=== PATIENT | female | born 1980 | race Caucasian/White ===

== ENCOUNTER → 2016-11-12 | Outpatient (CLI) | payer MEDICAID ==
[2016-11-12 08:55] LABS: ABSOLUTE BASOPHILS # (AUTO) 0.1 10^3/uL (0.0-0.2); ABSOLUTE EOSINOPHILS # (AUTO) 0.2 10^3/uL (0.0-0.6); ABSOLUTE LYMPHOCYTES (AUTO) 1.8 10^3/uL (0.5-4.7); ABSOLUTE MONOCYTES (AUTO) 0.7 10^3/uL (0.1-1.4); ABSOLUTE NEUT (AUTO) 5.8 10^3/uL (1.7-8.2); HEMATOCRIT 39.5 % (36.0-47.0); HEMOGLOBIN 12.6 g/dL (12.0-15.5); HGB HCT DIFFERENCE -1.7; LYMPHOCYTES % (AUTO) 21.1 % (13-45); MEAN CORPUSCULAR HEMOGLOBIN 26.9 pg (27.0-33.4); MEAN CORPUSCULAR HGB CONC 31.9 g/dL (32.0-36.0); MEAN CORPUSCULAR VOLUME 84 fl (80-97); MONOCYTES % (AUTO) 8.4 % (3-13); RED BLOOD COUNT 4.68 10^6/uL (3.72-5.28); RED CELL DISTRIBUTION WIDTH 13.1 % (11.5-14.0); SEGMENTED NEUTROPHILS % (AUTO) 67.5 % (42-78); WHITE BLOOD COUNT 8.5 10^3/uL (4.0-10.5)
[2016-11-12 09:20] LABS: ALANINE AMINOTRANSFERASE 62 U/L (9-52); ALBUMIN 3.8 g/dL (3.5-5.0); ALKALINE PHOSPHATASE 63 U/L (38-126); ANION GAP 9 (5-19); ASPARTATE AMINO TRANSFERASE 29 U/L (14-36); BILIRUBIN,TOTAL 0.6 mg/dL (0.2-1.3); BLOOD UREA NITROGEN 14 mg/dL (7-20); CALCIUM 9.2 mg/dL (8.4-10.2); CARBON DIOXIDE 28 mmol/L (22-30); CHLORIDE 104 mmol/L (98-107); CHOLESTEROL 190.85 mg/dL (0-200); CREATININE RESULT 0.78 mg/dL (0.52-1.25); Direct HDL 48 mg/dL (>40); GLUCOSE 93 mg/dL (75-110); POTASSIUM 4.7 mmol/L (3.6-5.0); TOTAL PROTEIN 6.2 g/dL (6.3-8.2); TRIGLYCERIDES 92 mg/dL (<150)
[2016-11-12 09:31] LABS: DIRECT LDL 129 mg/dL (<100)
[2016-11-13 10:20] LABS: FOLLICLE STIMULATING HORMONE 4.8 mIU/mL (.); LUTEINIZING HORMONE 3.7 mIU/mL (.); VITAMIN D 25-HYDROXY 17.6 ng/mL (30.0-100.0)
== END ==
LOC: LAB 08:36
PROVIDERS: ATTEND Nurse Practitioner Family
DX: D51.0 Vitamin B12 deficiency anemia due to intrinsic factor deficiency (principal); E83.32 Hereditary vitamin D-dependent rickets (type 1) (type 2)
CPT/HCPCS: 36415; 80053; 80061; 82306; 82607; 83001; 83002; 85025

== ENCOUNTER → 2016-11-12 | Outpatient (CLI) | payer MEDICAID ==
--- NOTE | 2016-11-16 07:59 | WOMENS IMAGING REPORT ---
EXAM DESCRIPTION: BILAT SCREENING MAMMO W/CAD COMPLETED DATE/TIME: 11/12/2016 2:03 pm REASON FOR STUDY: Z12.31, ROUTINE SCREENING MAMMO Z12.31 ENCNTR SCREEN MAMMOGRAM FOR MALIGNANT NEOP LASM OF KATHRYN COMPARISON: None. TECHNIQUE: Standard craniocaudal and mediolateral oblique views of each breast recorded using [employer] acquisition. LIMITATIONS: None. FINDINGS: No masses, calcifications or architectural distortion. No areas of suspicion. Read with the assistance of CAD. .[facility] - R2 Cenova Version 1.3 .[facility] Imaging - R2 Cenova Version 1.3 .[facility] - R2 Cenova Version 2.4 .[facility] [place] R2 Cenova Version 2.4 .[facility] - R2 Clean[employer]aser Version 9.2 BREAST DENSITY: d. The breasts are extremely dense, which lowers the sensitivity of mammography. BIRAD: 1 NEGATIVE RECOMMENDATION: ROUTINE SCREENING, unless there is any clinical palpable finding. Then follow-up di agnostic mammograms and ultrasound would be required. Please begin routine screening based on the patient's individual lifetime risk assessment for breast cancer, Deysi model. If the patient is to continue screening, recommend bilateral screening tomosynth esis given extremely dense fibroglandular tissue bilaterally. COMMENT: PATIENT NOTIFIED BY LETTER. The [employer] recommends an annual screening mammogram for women aged 40 years or over. Each patient will receive a reminder prior to the anniversary date of her mammogram. The [employer] (ACR) has developed recommendations for screening MRI of the breast s in certain patient populations, to be used in conjunction with mammography. Breast MRI surveillanc e may be appropriate for women with more than 20% lifetime risk of developing breast cancer as deter mined by genetic testing, significant family history of the disease, or history of mantle radiation f or Hodgkins Disease. ACR Practice Guidelines 2008. TECHNICAL DOCUMENTATION: FINDING NUMBER: (1) ASSESSMENT: (1) JOB ID: [id number] [employer]- All Rights Reserved
== END ==
LOC: WI 10:45
PROVIDERS: ATTEND Nurse Practitioner Family
DX: Z12.31 Encounter for screening mammogram for malignant neoplasm of breast (principal)
CPT/HCPCS: 77067; G0202

== ENCOUNTER 2017-05-10 23:09 | Emergency (ER) | payer MEDICAID ==
--- NOTE | 2017-05-11 01:54 | RADIOLOGY REPORT (SQ) ---
EXAM DESCRIPTION: SHOULDER LEFT 2 OR MORE VIEWS COMPLETED DATE/TIME: 05/11/2017 1:34 am REASON FOR STUDY: pain COMPARISON: None. NUMBER OF VIEWS: Three views. TECHNIQUE: Internal rotation, external rotation, and Y view images acquired of the left shoulder. LIMITATIONS: None. FINDINGS: MINERALIZATION: Normal. BONES: No acute fracture or dislocation. No worrisome bone lesions. JOINTS: No dislocation. VISUALIZED LUNGS AND RIBS: No pneumothorax. No rib fracture. SOFT TISSUES: No radiopaque foreign body. OTHER: No other significant finding. IMPRESSION: NEGATIVE STUDY OF THE LEFT SHOULDER. NO RADIOGRAPHIC EVIDENCE OF ACUTE INJURY. TECHNICAL DOCUMENTATION: JOB ID: [id number] [employer]- All Rights Reserved
[2017-05-11] MEDS ORDERED: HYDROCODONE/ACETAMINOPHEN 5-325 MG 6 TAB/DSPK PO PRN (02:16)
[2017-05-11] MEDS ORDERED: ONDANSETRON ODT 4 MG TAB (6 TAB/DSPK) PO PRN (02:16)
--- NOTE | 2017-05-11 02:18 | ER Document Report ---
ED Extremity Problem, Upper - General Chief Complaint: Shoulder Pain Stated Complaint: LEFT SHOULDER PAIN Time Seen by Provider: 05/11/17 01:54 Mode of Arrival: Ambulatory Information source: Patient TRAVEL OUTSIDE OF THE [place] IN LAST 30 DAYS: No - HPI Patient complains to provider of: Injury, Pain, Left, Shoulder Onset: Other - 2 days Recent injury: Yes Where: Outdoors Quality of pain: Achy Severity of pain: Moderate Context: Fall Associated symptoms: None Exacerbated by: Movement Relieved by: Nothing Similar symptoms previously: No Recently seen / treated by doctor: No Notes: Patient is a 37-year-old female who presents to the emergency room complaining of left shoulder pain 2 days, patient reports that on Tuesday she had a graduation alliance party for her son, they had a blow up water slide, she was playing on the slide, at one point in time her nephew posterior over, causing her feet to fall out from underneath her and landing on her left shoulder, when she woke up Tuesday morning she reported increased pain, since then has had pain with any type of range of motion of the left shoulder, denies any shortness of breath, no history of similar symptoms previously to the shoulder, she took Flexeril and Tylenol at home with minimal relief of symptoms - Related Data Allergies/Adverse Reactions: cefaclor [From Ceclor] Allergy (Unknown, Verified 07/11/16 15:13) latex [Latex] Allergy (Unknown, Verified 07/11/16 15:13) naproxen [Naproxen] Allergy (Unknown, Verified 07/11/16 15:13) bees Allergy (Unknown, Uncoded 07/11/16 15:13) Past Medical History - General Information source: Patient - Social History Smoking Status: Former Smoker Family History: Reviewed & Not Pertinent Renal/ Medical History: Denies: Hx Peritoneal Dialysis Past Surgical History: Reports: Hx Oral Surgery - Immunizations Hx Diphtheria, Pertussis, Tetanus Vaccination: Yes Review of Systems - Review of Systems Constitutional: No symptoms reported EENT: No symptoms reported Cardiovascular: No symptoms reported Respiratory: No symptoms reported Gastrointestinal: No symptoms reported Genitourinary: No symptoms reported Female Genitourinary: No symptoms reported Musculoskeletal: See HPI Skin: No symptoms reported Hematologic/Lymphatic: No symptoms reported Neurological/Psychological: No symptoms reported -: Yes All other systems reviewed and negative Physical Exam - Vital signs Interpretation: Normal - Notes Notes: - General General appearance: Appears well, Alert In distress: None - HEENT Head: Normocephalic, Atraumatic Eyes: Normal Conjunctiva: Normal Extraocular movements intact: Yes Eyelashes: Normal Pupils: PERRL - Respiratory Respiratory status: No respiratory distress - Cardiovascular Rhythm: Regular - Abdominal Inspection: Normal - Back Back: Normal - Extremities General upper extremity: Left shoulder with tenderness to palpate in soft tissue , pain with range of motion testing, distal sensation and motor is intact with 2 + radial pulses and brisk capillary refill General lower extremity: Normal inspection - Neurological Neuro grossly intact: Yes Orientation: AAOx4 [place] Coma Scale Eye Opening: Spontaneous [place] Coma Scale Verbal: Oriented Oscar Coma Scale Motor: Obeys Commands Oscar Coma Scale Total: 15 - Psychological Associated symptoms: Normal affect, Normal mood - Skin Skin Temperature: Warm Skin Moisture: Dry Skin Color: Normal Course - Re-evaluation Re-evalutation: 05/11/17 02:24 Imaging findings are unremarkable, discussed with patient at bedside, she was placed in a sling and provided with pain medication, as well as information for follow-up with orthopedics, patient advised to return if any additional concerns , patient acknowledges understanding and agreement with this plan - Diagnostic Test Radiology reviewed: Image reviewed, Reports reviewed Procedures - Immobilization Left Shoulder Time completed: 02:24 Pre-Proc Neuro Vasc Exam: Normal Immobilizer type: Sling Performed by: PCT Post-Proc Neuro Vasc Exam: Normal Alignment checked and good: Yes Discharge - Discharge Clinical Impression: Left shoulder strain Qualifiers: Encounter type: initial encounter Qualified Code(s): S46.912A - Strain of unspecified muscle, fascia and tendon at shoulder and upper arm level, left arm , initial encounter Condition: Stable Disposition: HOME, SELF-CARE Instructions: Shoulder Injury ([facility]), Temporary Sling ([facility]), Ice & Elevation ( [facility]), Oral Narcotic Medication ([facility]) Additional Instructions: Follow up with your primary care provider and an orthopedic surgeon in one to 2 days. Return to the emergency room immediately if symptoms worsen or any additional concerns. Ice and elevate the affected extremity. Referrals: DEQUAN FAUSTIN FNP [Primary Care Provider] - Follow up as needed ALBERTINA MUÑOZ MD [ACTIVE STAFF] - Follow up as needed
[2017-05-11 02:56] VITALS: BP 121/66
== END 2017-05-11 03:01 | disposition home or self-care (01) ==
LOC: ER 23:09
DX: S46.912A Strain of unspecified muscle, fascia and tendon at shoulder and upper arm level, left arm, initial encounter (principal); W19.XXXA Unspecified fall, initial encounter; Y93.19 Activity, other involving water and watercraft; Z88.1 Allergy status to other antibiotic agents; Z91.040 Latex allergy status; Z88.8 Allergy status to other drugs, medicaments and biological substances; Z91.030 Bee allergy status; Z87.891 Personal history of nicotine dependence
CPT/HCPCS: 99283